=== PATIENT | female | born 1970 | race American Indian/Alaskan Native ===

== ENCOUNTER 2018-02-25 09:39 | Emergency (ER) | payer OTHER ==
[2018-02-25 09:52] VITALS: BP 117/79; PULSE 80; RESP 18; TEMP 97.6; O2SAT 100
[2018-02-25] MEDS ORDERED: Sodium Chloride 0.9% 1,000 ML IV STA (10:38)
--- NOTE | 2018-02-25 10:40 | C.PDOC ---
History Of Present Illness 47 y/o F c PMHx migraine p/w lightheadedness x 1 week. States she has been feeling hungry but despite eating more, it does not resolve the lightheadedness. She denies fever, chills, chest pain, dyspnea, nausea, vomiting, diarrhea, constipation, numbness, weakness, trauma. She states she has lost 5 pounds in the past 2 months or so unintentionally. Reports feeling cold as well. Time Seen by Provider: 02/25/18 10:25 Chief Complaint (Nursing): Dizziness/Lightheaded Past Medical History Vital Signs: Last Vital Signs Temp 97.6 F 02/25/18 09:46 Pulse 80 02/25/18 09:46 Resp 18 02/25/18 09:46 BP 117/79 02/25/18 09:46 Pulse Ox 100 02/25/18 09:46 - Medical History PMH: Migraine Denies: Chronic Kidney Disease Family History: States: No Known Family Hx - Social History Hx Alcohol Use: No Hx Substance Use: No - Immunization History Hx Tetanus Toxoid Vaccination: No Hx Influenza Vaccination: No Hx Pneumococcal Vaccination: No Review Of Systems Except As Marked, All Systems Reviewed And Found Negative. Constitutional: Negative for: Fever Cardiovascular: Negative for: Chest Pain Physical Exam - Physical Exam Additional Physical Exam Comments: Constitutional: No acute distress. Head: Normocephalic. Atraumatic. Eyes: PERRL. No nystagmus ENT: Moist mucous membranes. Neck: Supple. Cardiovascular: Regular rate. Radial pulse 2+ bilaterally. Chest: No tenderness. Respiratory: Clear to auscultation bilaterally. GI: Soft. Nontender. Nondistended. Back: No CVA tenderness. Musculoskeletal: No tenderness or swelling of extremities. Skin: No rash. Neurologic: Alert, no focal deficit. Motor 5/5 x4, Gait: Steady ED Course And Treatment O2 Sat by Pulse Oximetry: 100 (RA) Pulse Ox Interpretation: Normal Against Medical Advice - AMA Patient Left Against Medical Advice: The patient declines admission to the hospital and wishes to leave the Emergency Department. This action is against my medical advice. This decision was made with informed refusal. The patient was told that admission to the hospital is necessary. Explanation of the reasons why were discussed. The risks of leaving were explained to the patient and include, but are not limited to, worsening of known or currently unknown conditions, permanent disability and from undiagnosed or untreated conditions. The patient has the capacity to make this informed decision and understands my explanation of the current medical problem and risks of leaving. The patient voluntarily accepts these risks and signed an AMA form documenting our conversation. The patient was given the opportunity to ask questions and reconsider. The patient was encouraged to return to the Emergency Department at any time for further care. Medical Decision Making Medical Decision Makin47 y/o F p/w lightheadedness without shortness of breath, appears well. Plan: IVF, labs, urine, CXR, reassess. Disposition - Disposition Disposition: AGAINST MEDICAL ADVICE Disposition Time: 11:07 Condition: UNKNOWN Forms: [employer] (Irish) - Clinical Impression Clinical Impression: Lightheaded - Scribe Statement The provider has reviewed the documentation as recorded by the Scribjesus Vicente All medical record entries made by the Scribe were at my direction and personally dictated by me. I have reviewed the chart and agree that the record accurately reflects my personal performance of the history, physical exam, medical decision making, and the department course for this patient. I have also personally directed, reviewed, and agree with the discharge instructions and disposition.
[2018-02-25] MEDS ORDERED: Sodium Chloride 0.9% 1,000 ML ONE (10:50)
[2018-02-25 11:00] LABS: HCG,QUALITATIVE URINE NEGATIVE (NEGATIVE)
[2018-02-25 11:10] LABS: SQUAMOUS EPITHIAL 1 /hpf (0-5); URINE BILIRUBIN NEGATIVE (NEGATIVE); URINE BLOOD 1+ (NEGATIVE); URINE CLARITY Clear (Clear); URINE COLOR Yellow (YELLOW); URINE GLUCOSE (UA) NORMAL (Normal); URINE PROTEIN NEGATIVE (NEGATIVE)
[2018-02-25 11:11] LABS: URINE LEUKOCYTE ESTERASE 2+ Leu/uL (Negative)
--- NOTE | 2018-02-25 14:38 | RAD ---
Date of service: 02/25/2018 HISTORY: Lightheaded COMPARISON: 04/29/2016. TECHNIQUE: Chest PA and lateral FINDINGS: LINES AND TUBES: None. LUNG AND PLEURA: The lungs are well inflated and clear. No pleural effusion or pneumothorax. HEART AND MEDIASTINUM: The heart is not enlarged. No aortic atherosclerotic calcification present. The hilar and mediastinal contours are within normal limits. SKELETAL STRUCTURES: The bony structures are within normal limits for the patient's age. VISUALIZED UPPER ABDOMEN: Normal. OTHER FINDINGS: None. IMPRESSION: No active pulmonary disease.
--- NOTE | 2018-02-26 23:57 | CARD ---
APPROVED REPORT Date of service: 02/25/2018 EKG Measurement Heart [id number] <Conclusion> Normal sinus rhythm Normal ECG
== END 2018-02-25 11:12 | disposition left against medical advice (07) ==
LOC: C.ER 09:39
DX: R42 Dizziness and giddiness (principal)